=== PATIENT | female | born 1975 | race Caucasian/White ===

== ENCOUNTER 2019-07-06 17:20 | Emergency (ER) | payer OTHER ==
[~2019-07-06] VITALS: Ht 170.2 cm; Wt 113.6 kg
[2019-07-06 17:48] VITALS: Ht 170.2 cm; Wt 113.6 kg
[2019-07-06 18:11] LABS: BASOPHILS 0.3 % (0-2); EOSINOPHILS 1.6 % (0-7); HEMOGLOBIN 14.9 g/dL (12-16); IMMATURE GRANULOCYTES 0.2 % (0-5); LYMPHOCYTES 37.9 % (15-50); MCHC 34.7 g/dL (31.0-37.0); MCV 92.3 fL (80.0-100.0); MEAN PLATELET VOLUME 9.5 fL (7.4-10.4); MONOCYTES 8.4 % (2-11); NEUTROPHILS 51.6 % (40-80); PLATELET COUNT 334 10x3/uL (130-400); RBC 4.66 10x6/uL (4.00-5.40); WBC 10.1 10x3/uL (4.8-10.8)
[2019-07-06 18:36] LABS: CALC OSMOLALITY 276 mosm/kg (275-300); CALCIUM 8.7 mg/dL (8.5-10.1); CARBON DIOXIDE 25.9 mmol/L (21.0-32.0); CHLORIDE - SERUM 104 mmol/L (98-107); CREATININE - SERUM 0.7 mg/dL (0.6-1.3); GLUCOSE 106 mg/dL (74-106); POTASSIUM - SERUM 3.8 mmol/L (3.5-5.1); SODIUM 139 mmol/L (136-145); UREA NITROGEN 9 mg/dL (7-18); eGFR NON AFRICAN AMERICAN > 90 mL/min (90-120)
[2019-07-06 18:45] LABS: ALBUMIN 3.7 g/dL (3.4-5.0); ALKALINE PHOSPHATASE 80 U/L (46-116); ALT (SGPT) 93 U/L (10-68); AMYLASE - SERUM 34 U/L (25-115); BILIRUBIN - TOTAL 0.26 mg/dL (0.2-1.3); LIPASE 140 U/L (73-393); PROTEIN - SERUM 7.4 g/dL (6.4-8.2)
[2019-07-06 18:55] LABS: TROPONIN-I < 0.017 ng/mL (0.000-0.060)
[2019-07-06 19:45] LABS: APPEARANCE CLEAR (CLEAR); BILIRUBIN NEGATIVE (NEGATIVE); COLOR YELLOW (YELLOW); GLUCOSE NEGATIVE (NEGATIVE); KETONE NEGATIVE (NEGATIVE); NITRITE NEGATIVE (NEGATIVE); PROTEIN NEGATIVE (NEGATIVE); SPECIFIC GRAVITY 1.015 (1.005-1.020); UROBILINOGEN NORMAL (NORMAL)
[2019-07-06] MEDS ORDERED: BENTYL 20 MG TA20 MG PO (19:52)
[2019-07-06] MEDS ORDERED: ZOFRAN ODT4 MG/UDTAB PO (19:52)
[2019-07-06 20:14] VITALS: BP 130/77
== END 2019-07-06 20:14 | disposition home or self-care (01) ==
LOC: EDBD 17:20 → D.ER 17:20
PROVIDERS: Family Medicine
DX: A08.4 Viral intestinal infection, unspecified (principal); R10.9 Unspecified abdominal pain; R11.2 Nausea with vomiting, unspecified